=== PATIENT | male | born 1950 | race Caucasian/White ===

== ENCOUNTER 2023-07-23 08:04 | Emergency (ER) | payer MEDICARE, MEDICAID ==
[~2023-07-23] VITALS: Ht 160 cm; Wt 63.9 kg
[2023-07-23 08:36] VITALS: BP 115/52; PULSE 60; RESP 15; TEMP 97.5; O2SAT 100
[2023-07-23] MEDS ORDERED: LidoCAINE 2% Topical Jelly 11mL syringe TOP ONE (09:50)
== END 2023-07-23 11:16 | disposition left against medical advice (07) ==
LOC: ER 08:05
DX: T83.9XXA Unspecified complication of genitourinary prosthetic device, implant and graft, initial encounter (principal); Z53.21 Procedure and treatment not carried out due to patient leaving prior to being seen by health care provider
CPT/HCPCS: 99281

== ENCOUNTER 2024-12-26 21:59 | Emergency (ER) | payer MEDICARE, MEDICAID ==
[~2024-12-26] VITALS: Ht 162.6 cm; Wt 73.3 kg
[2024-12-26 23:43] LABS: BASOPHILS % (AUTO) 0.1 % (0-1); EOSINOPHILS # (AUTO) 0.1 X10'3 (0-0.9); EOSINOPHILS % (AUTO) 0.3 % (0-6); HEMATOCRIT 39.3 % (42.0-52.0); HEMOGLOBIN 13.8 g/dl (14.0-17.9); LYMPHOCYTES # (AUTO) 0.5 X10'3 (1.1-4.8); LYMPHOCYTES % (AUTO) 3.4 % (21-51); MEAN CORPUSCULAR HEMOGLOBIN 30.4 PG (27.0-31.0); MEAN CORPUSCULAR VOLUME 86.9 FL (78-98); MONOCYTES # (AUTO) 0.5 X10'3 (0-0.9); MONOCYTES % (AUTO) 3.3 % (2-12); NEUTROPHILS # (AUTO) 13.9 X10'3 (1.8-7.7); NEUTROPHILS % (AUTO) 92.9 % (42-75); PLATELET COUNT 137 X10'3 (140-440); RED BLOOD COUNT 4.52 X10'6 (4.70-6.10); RED CELL DISTRIBUTION WIDTH 14.1 % (11.5-14.5)
[2024-12-27 00:09] LABS: ALBUMIN 3.9 G/DL (3.4-5.0); ANION GAP 10 (8-16); BLOOD UREA NITROGEN 23 MG/DL (7-18); BUN/CREATININE RATIO 21.3 (10.0-20.0); CALCIUM 9.5 MG/DL (8.5-10.1); CHLORIDE 104 MMOL/L (99-107); CREATININE 1.08 MG/DL (0.60-1.10); GLUCOSE 204 MG/DL (70-104); POTASSIUM 4.1 MMOL/L (3.5-5.1); SODIUM 139 MMOL/L (135-145); TOTAL CARBON DIOXIDE 25.1 MMOL/L (24-32); eCRCL 49 ML/MIN; eGFR 66 ML/MIN
[2024-12-27 00:13] LABS: APTT 26 SECONDS (22-32); INR 1.2 INR; PROTHROMBIN TIME 11.9 SECONDS (9.0-12.0)
[2024-12-27 00:40] VITALS: TEMP 99.1
[2024-12-27 00:56] LABS: CLARITY,URINE TURBID (Clear); COLOR,URINE RED (Yellow); UA COLLECTION TYPE FOLEY CATH
[2024-12-27 01:03] LABS: BACTERIA,URINE 4+ /HPF (Neg); RBC,URINE TNTC /HPF (0-2); SQUAMOUS EPITHELIAL CELL,UR NONE SEEN /LPF (FEW); WBC,URINE TNTC /HPF (0-4)
[2024-12-27] MEDS ORDERED: CEPH-585 PO (04:23)
[2024-12-27] MEDS: cephalexin 250mg capsule PO ONE (04:37)
[2024-12-27 04:40] LABS: CLARITY,URINE TURBID (Clear); COLOR,URINE RED (Yellow); UA COLLECTION TYPE FOLEY CATH
[2024-12-27 04:41] LABS: BACTERIA,URINE 4+ /HPF (Neg); RBC,URINE TNTC /HPF (0-2); SQUAMOUS EPITHELIAL CELL,UR NONE SEEN /LPF (FEW); WBC,URINE TNTC /HPF (0-4)
[2024-12-27 08:38] VITALS: BP 122/70; PULSE 87; RESP 14; O2SAT 96
== END 2024-12-27 08:37 | disposition home or self-care (01) ==
LOC: ER 22:00
DX: T83.9XXA Unspecified complication of genitourinary prosthetic device, implant and graft, initial encounter (principal); N39.0 Urinary tract infection, site not specified; Y92.89 Other specified places as the place of occurrence of the external cause
CPT/HCPCS: 36415; 51702; 51798; 74176; 80048; 81001; 85025; 85610; 85730; 86885; 86900; 86901; 87077; 87088; 87186; 99284; A4314; A4340

== ENCOUNTER 2025-05-27 11:03 | Emergency (ER) | payer MEDICARE, MEDICAID ==
[~2025-05-27] VITALS: Ht 165.1 cm; Wt 59.0 kg
[2025-05-27 11:04] VITALS: BP 120/71; PULSE 78; RESP 16; O2SAT 98
--- NOTE | 2025-05-27 13:28 | Physician Documentation ---
History of Present Illness ~ Chief Complaint: Catheter Problem Stated Complaint: CATHETER CHANGE Time Seen by MD: 13:12 Source: patient Mode of Arrival: EMS, Ambulatory Exam Limitations: no limitations HPI Patient presented via EMS secondary to needing his catheter changed out. When asked he reports as bladder bag broke. Patient was taken to the lobby after arrival from EMS with his catheter intact. At some point during his stay in the lobby the catheter became dislodged and he was holding it Gail intact in his hand (per nursing). He states he has had a [place] catheter was for many use secondary to urinary retention. He used to see Dr. Bernal but has not seen him in years. States he does not have a primary care provider. Medication Reconciliation Allergies: Coded Allergies: No Known Allergies (Unverified , 05/27/25) Past Medical History Past Medical History: *RENAL/*, Diabetes (States controlled.) Past Surgical History: noncontributory Alcohol Use: None Drug Use: none Lives In: Home Review of Systems ROS Patient complaining of needing his catheter changed out. He has not no other medical complaints. Physical Exam Vital Signs: RN Vital Signs have been reviewed: Yes, Temperature: 97.1, Source: Temporal, Heart Rate: 78, Respiratory Rate: 16, BP: 120/71, Pulse Oximetry: 98, Weight: 59.000 Physical Exam General: Awake, alert, oriented. No apparent distress Respiratory: Lungs are clear to auscultation bilaterally. No respiratory distress. Chest: Normal shape and size. No accessory muscle use. Cardiovascular: Regular rate and rhythm. S1-S2. No murmur, gallop, rub. Gastrointestinal: Abdomen is soft. Nontender to palpation. Bowel sounds present. : No pain with palpation over the urinary bladder. No erythema, swelling of the urinary meatus. Psychiatric: Normal mood and affect. Skin: Normal color. Warm and dry. Progress Results/Orders Results/Orders Orders - EDUIN SCOTT RELATIONS MANAGER Recheck Vital Signs (05/27/25 ) Completed Orders - EUDIN SCOTT RELATIONS MANAGER * (B) Colunga- Non Protocol * Q12H@07,19 (05/27/25 13:17) * Miscellaneous Nursing Orders (05/27/25 13:28) Lidocaine 2% Jelly 11ml Syr (Glydo-Lidoc (05/27/25 15:45) Medications Received in ER Medications (Trade) Dose Ordered Sig/Donnie Route PRN Reason Start Time Stop Time Status Last Admin Dose Admin (GLYDO-Lidocaine 2% Topical Jelly 11mL syringe) 1 applic ONCE ONCE TOP 05/27/25 15:45 05/27/25 15:46 DC 05/27/25 16:21 1 APPLIC Vital Signs 05/27/25 05/27/25 11:04 17:23 Temp 97.1 97.1 Pulse 78 Resp 16 B/P (MAP) 120/71 Pulse Ox 98 Medical Decision Making Findings Patient presents wanting his catheter changed out. He has had a Col[place]a catheter for many years. States that he does not have a primary care provider. States that he no longer sees a urologist and has been using the hospital for his services. No signs and symptoms of infection. No fevers or chills. Was asked, but otherwise denies medical complaints and has no physical exam findings consistent with infectious etiologies. His [place] catheter was therefore changed out and he is discharged home with instructions to follow up outpatient with primary care provider. Departure Time of Disposition: 13:26 Impression: Primary Impression: Complication of Colunga catheter Qualified Codes: T83.9XXD - Unspecified complication of genitourinary prosthetic device, implant and graft, subsequent encounter Additional Impression: Elevated blood pressure reading without diagnosis of hypertension Discharge Instructions: Indwelling Urinary Catheter Care, Adult Additional Instructions: Please follow up with the primary care provider. You should follow up within the next week. Also recommend that you follow up with a urologist. Especially, considering that you have had a Col[place]a catheter for many years. Gregg more of your blood pressures was greater than 130/80. Please follow up with your primary care provider with regards to this. Referrals: NO PRIMARY CARE PROVIDER (PCP) Education Educated: Patient Educated regarding: diagnosis, treatment, need for follow up Signature Scribe Signature: no scribe Attestation: The note accurately reflects work and decisions made by me.Eduin Scott - MACKENZIE 05/27/25 18:06 This note was created with the assistance of voice recognition software whereby errors in grammar, syntax, and/or spelling may have occurred despite active proofreading efforts by the author. Please do not hesitate to contact the provider for clarification or for questions regarding the content of this document. EDUIN SCOTT NP May 27, 2025 13:28
[2025-05-27] MEDS: LidoCAINE 2% Topical Jelly 11mL syringe (UROJET) TOP ONE (16:21)
[2025-05-27 17:23] VITALS: TEMP 97.1
== END 2025-05-27 17:24 | disposition home or self-care (01) ==
LOC: ER 11:04
DX: E11.9 Type 2 diabetes mellitus without complications (principal); T83.89XA Other specified complication of genitourinary prosthetic devices, implants and grafts, initial encounter; R03.0 Elevated blood-pressure reading, without diagnosis of hypertension
CPT/HCPCS: 99284; A4314; A4340; A4358

== ENCOUNTER 2025-06-26 09:36 | Emergency (ER) | payer MEDICARE, MEDICAID ==
[~2025-06-26] VITALS: Ht 167.6 cm; Wt 63.6 kg
[2025-06-26 09:39] VITALS: BP 120/63; PULSE 65; RESP 16; TEMP 97.3; O2SAT 100
--- NOTE | 2025-06-26 09:54 | Physician Documentation ---
History of Present Illness General Chief Complaint: Catheter Problem Stated Complaint: CATH ISSUES Time Seen by MD: 09:54 Primary Medical Doctor: TAYLOR Source: patient Mode of Arrival: EMS Exam Limitations: no limitations History of Present Illness Initial Comments 75 year old male, who has had a Col[place]a catheter for the last few years, brought to the ED via EMS with requests to have his catheter changed. The patient states the catheter was last changed approximately one month ago. He was seen on 05/27/25 for the same. He denies any pain, fever, or blood in his urine. Medication Reconciliation Allergies: Coded Allergies: No Known Allergies (Unverified , 06/26/25) Past Medical History Past Medical History: *ENT*, *RENAL/*, Diabetes Past Surgical History: noncontributory Alcohol Use: None Drug Use: none Lives In: Home Review of Systems All Other Systems at this time: Reviewed and Negative ROS As stated above in the HPI, otherwise all systems are reviewed and negative. Physical Exam Physical Exam Vital Signs: RN Vital Signs have been reviewed: Yes, Temperature: 97.3, Source: Temporal, Heart Rate: 65, Respiratory Rate: 16, BP: 120/63, Pulse Oximetry: 100, Weight: 63.640 Oxygen Flow Rate: 0 Pulse Oximetry Reflects: adequate oxygenation Physical Exam VITALS: Reviewed and as above. GENERAL: Alert, no apparent distress. HEENT: Normocephalic, atraumatic, PERRL, EOMI, dry mucosa, no erythema RESPIRATORY: Lungs clear, normal breath sounds, no respiratory distress. CHEST: No accessory muscle use, no retractions CV: Regular rate, rhythm, no edema, no murmur, No: JVD : Deferred MUSCULOSKELETAL No deformities, no edema SKIN: Warm and dry, no rash NEURO: Oriented x4, No motor or sensory deficit PSYCH: Normal mood and affect, no agitation Progress Results/Orders Results/Orders Orders - OHLFS,KARISSA Pérez MD * (B) Colunga- Non Protocol * Q12H@07,19 (06/26/25 10:43) Vital Signs 06/26/25 09:39 Temp 97.3 Pulse 65 Resp 16 B/P (MAP) 120/63 Pulse Ox 100 O2 Flow Rate 0 Medical Decision Making Additional information obtaine: old records (seen 1 month ago for the same) Findings The patient is here for a Col[place] catheter change, patient is nontoxic otherwise well-appearing in no distress prior hospitalizations has been reviewed vital signs are stable his pulse oximetry was interpreted as normal. Differential Diagnosis None Departure Time of Disposition: 10:57 Disposition: 01 HOME / SELF CARE / HOMELESS Impression: Primary Impression: [place] catheter problem Qualified Codes: T83.9XXA - Unspecified complication of genitourinary prosthetic device, implant and graft, initial encounter Discharge Instructions: Indwelling Urinary Catheter Care, Adult Education Educated: Patient Educated regarding: diagnosis, treatment, need for follow up Signature Scribe Signature: Scribed for Karissa Otero MD by Herbert Mak . 06/26/25 10:42 Attestation: The note accurately reflects work and decisions made by me.Karissa Otero MD 06/27/25 07:44 KARISSA OTERO MD Jun 26, 2025 09:54 HERBERT HEALY Jun 26, 2025 10:48
== END 2025-06-26 13:00 | disposition home or self-care (01) ==
LOC: ER 09:36
DX: T83.9XXA Unspecified complication of genitourinary prosthetic device, implant and graft, initial encounter (principal); E11.9 Type 2 diabetes mellitus without complications; Y84.6 Urinary catheterization as the cause of abnormal reaction of the patient, or of later complication, without mention of misadventure at the time of the procedure
CPT/HCPCS: 99283; C1758

== ENCOUNTER 2025-07-27 09:29 | Emergency (ER) | payer MEDICARE, MEDICAID ==
[~2025-07-27] VITALS: Ht 167.6 cm; Wt 66.0 kg
[2025-07-27 09:33] VITALS: TEMP 97.5
--- NOTE | 2025-07-27 09:47 | Physician Documentation ---
History of Present Illness ~ Stated Complaint: CATHETER REPLACEMENT Time Seen by MD: 09:32 OK to notify your PCP?: Yes Primary Medical Doctor: UNK Source: patient Mode of Arrival: EMS Exam Limitations: no limitations HPI 75-year-old male who is here to have his Estes catheter replaced. It was last replaced here a month ago. He states the catheter was placed several years ago due to repeated urinary tract infections from neurogenic bladder. His previous urologist was Dr. Haney but he has not been seen by Dr. Haney in quite some time. He does not have a primary care provider. He states he does not drive a car which is why he had to take an ambulance to the ER today. He denies any problems with the catheter draining, abdominal pain, nausea, fever, chills. Medication Reconciliation Allergies: Coded Allergies: No Known Allergies (Unverified , 06/26/25) Past Medical History Past Medical History: *ENT*, *RENAL/*, Diabetes Past Surgical History: other (TURP 2022 dr. bernal) Alcohol Use: None Drug Use: none Lives In: Home Review of Systems All Other Systems at this time: Reviewed and Negative Physical Exam Vital Signs: Temperature: 97.5, Source: Oral, Heart Rate: 63, Respiratory Rate: 15, BP: 146/51, Pulse Oximetry: 100, Weight: 66.000 Physical Exam General Appearance: Alert, WD/WN. NAD. HEENT: NCAT, PERRL, EOMI. Neck: Supple, trachea midline. Lungs: Breathing unlabored abd: URINARY CATHETER BAG PRESENT WHICH CONTAINS YELLOW, CLEAR, URINE, APPEARS TO BE DRAINING PROPERLY. Extremities: Normal inspection. No edema. Skin: Warm/dry, normal color Neurological: Alert and oriented x4, normal gait. Psychiatric: Affect congruent with mood. Procedures Procedures estes catheter removed by RN and replaced with new estes catheter Progress Results/Orders Results/Orders Orders - FRANCES MCMAHAN Reinsurance Claims Analyst (07/27/25 09:40) Completed Orders - FRANCES MCMAHAN * (A) Estes- Protocol * Q12H@07,19 (07/27/25 09:41) Lidocaine 2% Jelly 11ml Syr (Glydo-Lidoc (07/27/25 09:45) Medications Received in ER Medications (Trade) Dose Ordered Sig/Donnie Route PRN Reason Start Time Stop Time Status Last Admin Dose Admin (GLYDO-Lidocaine 2% Topical Jelly 11mL syringe) 1 applic ONCE ONCE TOP 07/27/25 09:45 07/27/25 09:46 DC 07/27/25 09:58 1 APPLIC Vital Signs 07/27/25 07/27/25 07/27/25 07/27/25 09:33 09:59 10:00 11:00 Temp 97.5 Pulse 63 64 66 Resp 15 15 15 15 B/P (MAP) 146/51 98/62 (74) 145/61 Pulse Ox 100 99 99 Medical Decision Making Additional information obtaine: old records Findings PREVIOUS CATHETER CHANGES AND [facility] RECORDS Urinary Diff Dx:Considerations: Include: AAA, Aortic dissection, Appendicitis, Appendicitis train, Bowel obstruction, Bladder outlet obstruc., Cholelithiasis, Choleangitis, Cholecystitis, DJD, Epididymitis, Hepatitis, HNP, Impaction, Musculoskeletal pain, Pancreatitis, Postoperative Comp., Prostatitis, Pyelonephritis, Renal failure, Renal infarction, Strain, Urolithiasis, Urinary Obstruction, Urethritis, Urinary retention, UTI, Other Genital Diff Dx:Considerations: Include: Abscess, Balanitis, Balanoposthitis, Cellulitis, Epididymitis, Entrapment injury, Og's gangrene, Foreign body, Facture penis, Hydrocele, Inguinal hernia, Post-op Complication, Paraphimosis, Prostatitis, Priapism, Syphilis, Testicular torsion, Torsion-epididymis, Torsion-appendiceal, Urinary retention, Urethritis, Urethritis-chlamydial, Urethritis-gonococcal, UTI, Other Additional Comment APICULTURE TEACHER TO HELP WITH RESOURCES WHERE HE CAN GET HIS CATHETER CHANGED RATHER THAN COMING TO ER. I reviewed records from [facility] which showed that patient has had a Estes catheter placed now for quite some time he had it when he was living in [facility] prior to relocating to this area back in 2021. He had a TURP procedure with Dr. Bernal in 2022. Records state that they recommended self catheterization back in 2022 however it appears the patient was noncompliant with this as he was readmitted for a urinary tract infection and urinary retention. Departure Time of Disposition: 09:46 Disposition: 01 HOME / SELF CARE / HOMELESS Impression: Primary Impression: Neurogenic bladder Additional Impression: Estes catheter in place Condition: Stable Discharge Instructions: General Discharge Instructions Additional Instructions: PATIENT NEEDS TO HAVE CATHETER CHANGED EVERY 30DAYS. APICULTURE TEACHER REQUESTED TO HELP PATIENT WITH RESOURCES FOR PRIMARY CARE PROVIDER WHERE HE CAN GET HELP WITH CHANGES RATHER THAN COMING TO ER--HOWEVER, APPARENTLY SINCE NO PCP LEAD MINER UNABLE TO ASSIST. RESOURCES GIVEN FOR PCP NEAR WHERE LIVES Referrals: NO PRIMARY CARE PROVIDER (PCP) Education Educated: Patient Educated regarding: diagnosis, treatment, need for follow up Signature Scribe Signature: X Attestation: FRANCES RIVAS Jul 27, 2025 09:47
[2025-07-27] MEDS: LidoCAINE 2% Topical Jelly 11mL syringe (UROJET) TOP ONE (09:58)
[2025-07-27 11:00] VITALS: BP 145/61; PULSE 66; RESP 15; O2SAT 99
== END 2025-07-27 11:03 | disposition home or self-care (01) ==
LOC: ER 09:30
DX: N31.9 Neuromuscular dysfunction of bladder, unspecified (principal); E11.9 Type 2 diabetes mellitus without complications; Z90.79 Acquired absence of other genital organ(s)
CPT/HCPCS: 51702; 99284; A4314